=== PATIENT | male | born 1990 | race African-American/Black ===

== ENCOUNTER 2020-12-27 16:50 | Emergency (ER) | payer BC, MEDICAID ==
[~2020-12-27] VITALS: Ht 167.6 cm; Wt 113.6 kg
[2020-12-27] MEDS ORDERED: LIDOCAINE 1%, 10ML INFIL ONE (17:30)
--- NOTE | 2020-12-27 17:47 | NUR ---
GYN: PT AMBULATORY TO ROOM FROM LOBBY
--- NOTE | 2020-12-27 18:11 | NUR ---
ASSUMED BUG BITE ON LEFT SIDE ABD X 2 DAYS, SWELLING/REDNESS INCREASING. ALSO PAIN RADIATING UP THROUGH CHEST CAUSING SOB AFEBRILE AT 98.8 (TRIAGE TEMP MISNOMER), VSS (DOES NOT APPEAR SEPTIC) lUNGS CLEAR NO COVID SXS ASSESSED OR REPORTED
[2020-12-27] MEDS ORDERED: LIDOCAINE-MPF 1%, 5ML ONE (18:39)
[2020-12-27] MEDS ORDERED: NEOSPORIN OINT. PKT 1 PACKET ONE (18:39)
--- NOTE | 2020-12-27 18:43 | NUR ---
ER MD TO BEDSIDE- TO ULTRASOUND CELLULITUS TO SEE IF I/D USEFUL
[2020-12-27] MEDS ORDERED: LIDOCAINE-MPF 1%, 2ML ONE (18:49)
[2020-12-27] MEDS ORDERED: CEFTRIAXONE 1,000 MG ONE (18:49)
--- NOTE | 2020-12-27 18:53 | NUR ---
LEADING EDGE OF CELLULITUS GROWING. STUDIO ASSISTANT ENCIRCLED WITH SKINMARKER AND TIMED IT TO ULTRASOUND AT 185
[2020-12-27] MEDS ORDERED: CEFTRIAXONE 1,000 MG IM ONE (19:00)
--- NOTE | 2020-12-27 19:24 | NUR ---
MEDICATED PER EMAR WITH IM ABX
[2020-12-27 19:27] VITALS: BP 143/89
[2020-12-27] MEDS ORDERED: DIPHENHYDRAMINE 50 MG CAPSULE ONE (19:46)
--- NOTE | 2020-12-27 19:56 | NUR ---
After extensive education on sxs to watch for and what neccesitates return to care-patient discharged in care of girlfriend
[2020-12-27] MEDS ORDERED: DIPHENHYDRAMINE 25 MG CAPSULE PO ONE (20:00)
== END 2020-12-27 19:59 | disposition home or self-care (01) ==
LOC: ED 19:09
DX: L03.313 Cellulitis of chest wall (principal)
CPT/HCPCS: 76705; 96372; 99284; J0696; J3490; Q0163